=== PATIENT | female | born 1990 | race American Indian/Alaskan Native ===

== ENCOUNTER 2016-11-04 11:50 | Emergency (ER) | payer SELFPAY ==
[2016-11-04 12:06] VITALS: BP 149/98
[2016-11-04] MEDS ORDERED: DECADRON IM ONE (13:49)
--- NOTE | 2016-11-04 14:10 | Emergency Department Report ---
- General Chief Complaint: Upper Respiratory Infection Stated Complaint: RUNNING NOSE/FEVER/COUGHING UP COLD Time Seen by Provider: 11/04/16 13:33 Source: patient Mode of arrival: Ambulatory Limitations: No Limitations - History of Present Illness Initial Comments: Patient comes in the ER today with complaints of nasal congestion, nasal drainage, cough, sore throat for the past 5 days. Patient states that she's been taking [id number] medications without any relief. Patient states that she has been coughing up some greenish yellow phlegm. Patient denies any chest pain. - Related Data Previous Rx's Medication Instructions Recorded Last Taken Type Amoxicillin 1,000 mg PO BID #40 capsule 11/04/16 Unknown Rx predniSONE [Deltasone] 40 mg PO QDAY 5 Days 11/04/16 Unknown Rx Allergies Allergy/AdvReac Type Severity Reaction Status Date / Time cefaclor [From [facility]] Allergy Swelling Verified 11/04/16 12:00 ED Review of Systems ROS: Stated complaint: RUNNING NOSE/FEVER/COUGHING UP COLD Other details as noted in HPI Constitutional: denies: chills, fever Eyes: denies: eye pain, eye discharge, vision change ENT: throat pain, congestion. denies: ear pain, dental pain, epistaxis Respiratory: cough. denies: shortness of breath, wheezing Cardiovascular: denies: chest pain, palpitations Endocrine: no symptoms reported Gastrointestinal: denies: abdominal pain, nausea, diarrhea Genitourinary: denies: urgency, dysuria, discharge Musculoskeletal: denies: back pain, joint swelling, arthralgia Skin: denies: rash, lesions Neurological: denies: headache, weakness, paresthesias Psychiatric: denies: anxiety, depression Hematological/Lymphatic: denies: easy bleeding, easy bruising ED Past Medical Hx - Past Medical History Hx Hypertension: Yes Additional medical history: OBESITY - Surgical History Hx Cholecystectomy: Yes Additional Surgical History: LEFT ROTATOR CUFF REPAIR. X 3. TUBAL LIGATION. CERVICAL ABLATION - Social History Smoking Status: Never Smoker Substance Use Type: Alcohol - Medications Home Medications: Home Medications Medication Instructions Recorded Confirmed Last Taken Type Amoxicillin 1,000 mg PO BID #40 capsule 11/04/16 Unknown Rx predniSONE [Deltasone] 40 mg PO QDAY 5 Days 11/04/16 Unknown Rx ED Physical Exam - General Limitations: No Limitations General appearance: alert, in no apparent distress - Head Head exam: Present: atraumatic, normocephalic - Eye Eye exam: Present: normal appearance. Absent: conjunctival injection - ENT ENT exam: Present: mucous membranes moist, TM's normal bilaterally, normal external ear exam, other (bilateral nasal mucosa redness with turbinate swelling , left maxillary and frontal sinus tenderness to percussion. Posterior pharynx mildly erythematous with postnasal drainage noted.) - Neck Neck exam: Present: normal inspection - Respiratory Respiratory exam: Present: rhonchi. Absent: respiratory distress, wheezes, rales, decreased breath sounds - Cardiovascular Cardiovascular Exam: Present: regular rate, normal rhythm. Absent: systolic murmur, diastolic murmur, rubs, gallop - GI/Abdominal GI/Abdominal exam: Present: soft, normal bowel sounds. Absent: tenderness - Extremities Exam Extremities exam: Present: normal inspection - Back Exam Back exam: Present: normal inspection - Neurological Exam Neurological exam: Present: alert, oriented X3 - Psychiatric Psychiatric exam: Present: normal affect, normal mood - Skin Skin exam: Present: warm, dry, intact, normal color. Absent: rash ED Course Vital Signs 11/04/16 12:03 Temperature 98.8 F Pulse Rate 102 H Respiratory 18 Rate Blood Pressure 149/98 O2 Sat by Pulse 100 Oximetry ED Medical Decision Making - Medical Decision Making Patient is nontoxic and hemodynamically stable. Patient given Decadron 10 mg here in the ER for sinus congestion and symptomatic relief. I will prescribe patient antibiotics accordingly for upper respiratory infection. Patient is in agreement with treatment plan and patient is stable for discharge. Critical care attestation.: If time is entered above; I have spent that time in minutes in the direct care of this critically ill patient, excluding procedure time. ED Disposition Clinical Impression: Sinusitis, Bronchitis Disposition: - TO HOME OR SELFCARE Is pt being admited?: No Does the pt Need Aspirin: No Condition: Good Instructions: Acute Bronchitis (ED), Sinusitis (ED) Prescriptions: Amoxicillin 1,000 mg PO BID #40 capsule predniSONE [Deltasone] 40 mg PO QDAY 5 Days Referrals: PRIMARY CARE, [Primary Care Provider] - 3-5 Days Time of Disposition: 14:10
== END 2016-11-04 14:21 | disposition home or self-care (01) ==
LOC: ED 11:50
DX: J40 Bronchitis, not specified as acute or chronic (principal); J32.1 Chronic frontal sinusitis; J32.0 Chronic maxillary sinusitis; I10 Essential (primary) hypertension; Z90.49 Acquired absence of other specified parts of digestive tract; Z98.51 Tubal ligation status; Z88.8 Allergy status to other drugs, medicaments and biological substances
CPT/HCPCS: 96372; 99282; J1100

== ENCOUNTER 2017-01-15 08:45 | Emergency (ER) | payer MEDICAID ==
[2017-01-15 10:03] VITALS: BP 145/84
--- NOTE | 2017-01-15 19:10 | Emergency Department Report ---
Entered by BILL MAHER, acting as scribe for CHRIS GASTON NP. Minor Respiratory - HPI Chief Complaint: Allergic Reaction Stated Complaint: ITCHONG ALL OVER Time Seen by Provider: 01/15/17 10:17 Duration: 1 Day Severity: mild Minor Respiratory: Yes Rhinorrhea, Yes Able to Tolerate Fluids, Yes Cough, No Sore Throat, No Ear Pain, No Sick Contacts, No Hemoptysis, No Chest Pain, No Shortness of Breath, No Fever Other History: 26 y/o female with a PMHx of HTN and obesity presents to the ED c /o generalized itching that began yesterday at 16:00. Patient states she believes her itching is due to eating cantaloupe. Notes that this was her first time consuming cantaloupe and she reports she is having an allergic reaction. Associated symptoms includes cough and rhinorrhea, but she denies rash, SOB, throat closing sensation, nausea, vomiting, fever, chills, chest pain, and headache. Notes she has a scratchy sensation in back of throat at night. Allergic to cefaclor. ED Review of Systems ROS: Stated complaint: ITCHONG ALL OVER Other details as noted in HPI Comment: All other systems reviewed and negative Constitutional: denies: chills, fever Eyes: denies: eye pain, eye discharge, vision change ENT: other (rhinorrhea). denies: ear pain, throat pain, congestion Respiratory: cough. denies: orthopnea, shortness of breath, SOB with exertion, SOB at rest, stridor, wheezing Cardiovascular: denies: chest pain, palpitations Endocrine: no symptoms reported Gastrointestinal: denies: abdominal pain, nausea, vomiting, diarrhea Genitourinary: denies: urgency, dysuria, discharge Musculoskeletal: denies: back pain, joint swelling, arthralgia Skin: other (generalized itching). denies: rash, lesions Neurological: denies: headache, weakness, paresthesias Psychiatric: denies: anxiety, depression Hematological/Lymphatic: denies: easy bleeding, easy bruising ED Past Medical Hx - Past Medical History Previous Medical History?: Yes Hx Hypertension: Yes Additional medical history: OBESITY - Surgical History Past Surgical History?: Yes Hx Cholecystectomy: Yes Additional Surgical History: LEFT ROTATOR CUFF REPAIR. X 3. TUBAL LIGATION. CERVICAL ABLATION - Family History Family history: no significant - Social History Smoking Status: Never Smoker Substance Use Type: None - Medications Home Medications: Home Medications Medication Instructions Recorded Confirmed Last Taken Type Amoxicillin 1,000 mg PO BID #40 capsule 11/04/16 Unknown Rx predniSONE [Deltasone] 40 mg PO QDAY 5 Days 11/04/16 Unknown Rx Azithromycin [Zithromax Z-SOBEIDA] 250 mg PO DAILY #6 tablet 01/15/17 Unknown Rx Fluticasone [Flonase] 1 spray NS QDAY #1 bottle 01/15/17 Unknown Rx methylPREDNISolone [Medrol] 4 mg PO DAILY #1 tab.ds.pk 01/15/17 Unknown Rx Minor Respiratory Exam - Exam General: Vital signs noted. GENERAL: The patient is a well-developed, well-nourished, in no apparent distress. Patient is alert and oriented x3. HEENT: Yes Pharyngeal Erythema, Yes Moist Mucous Membranes (post nasal drainage present), Yes Rhinorrhea, Yes Frontal Tenderness (bilaterally), Yes Maxillary Tenderness (bilaterally), No Pharyngeal Exudates, No Conjuctival Injection Ear: Neither TM Bulge, Neither TM Erythema, Neither EAC Pain, Neither EAC Discharge Neck: Yes Supple (FROM), No Adenopathy Lungs: Yes Good Air Exchange, Yes Ronchi (present to bilateral bronchioles), No Wheezes, No Stridor, No Cough, No Labored Respirations, No Retractions, No Use of Accessory Muscles, No Other Abnormal Lung Sounds Heart: Yes Regular (Regular rate and rhythm. S1-S2), No Murmur Abdomen: Yes Normal Bowel Sounds (Soft, nondistended in all quadrants), No Tenderness, No Peritoneal Signs Skin: No Rash, No Edema Neurologic: Alert and oriented, no deficits. Musculoskeletal: Unremarkable. ED Course Vital Signs 01/15/17 09:56 Temperature 98.9 F Pulse Rate 88 Respiratory 18 Rate Blood Pressure 145/84 O2 Sat by Pulse 100 Oximetry Critical care attestation.: If time is entered above; I have spent that time in minutes in the direct care of this critically ill patient, excluding procedure time. ED Disposition Clinical Impression: Upper respiratory infection, Bronchitis, Urticaria Disposition: DC-01 TO HOME OR SELFCARE Is pt being admited?: No Does the pt Need Aspirin: No Condition: Stable Instructions: Chronic Bronchitis (ED) Additional Instructions: REST FLUIDS MEDS ORDERED TODAY Referrals: PRIMARY CARE, [Primary Care Provider] - 3-5 Days DMITRY DOVE MD [Staff Physician] - 3-5 Days Time of Disposition: 11:25 This documentation as recorded by the GUNNAR agustin JASMINE,accurately reflects the service I personally performed and the decisions made by me,CHRIS CHRISTIANSON NP.
== END 2017-01-15 11:35 | disposition home or self-care (01) ==
LOC: ED 08:45
DX: J06.9 Acute upper respiratory infection, unspecified (principal); J40 Bronchitis, not specified as acute or chronic; L50.9 Urticaria, unspecified; I10 Essential (primary) hypertension; E66.9 Obesity, unspecified
CPT/HCPCS: 99282

== ENCOUNTER 2017-01-30 21:09 | Emergency (ER) | payer MEDICAID ==
[2017-01-30 22:29] LABS: Basophils % (Auto) 0.5 % (0.0-1.8); Eosinophils % (Auto) 0.1 % (0.0-4.3); Hemoglobin 12.2 gm/dl (10.1-14.3); Mean Corpuscular HGB Conc 33 % (30-34); Mean Corpuscular Hemoglobin 28 pg (28-32); Mean Corpuscular Volume 85 fl (79-97); Platelet Count 201 K/mm3 (140-440); Red Blood Count 4.34 M/mm3 (3.65-5.03); Red Cell Distribution Width 15.1 % (13.2-15.2); White Blood Count 9.7 K/mm3 (4.5-11.0)
[2017-01-30 22:33] LABS: Anion Gap 16 mmol/L; BUN/Creatinine Ratio 14.44; Blood Urea Nitrogen 13 mg/dL (7-17); Calcium 8.3 mg/dL (8.4-10.2); Carbon Dioxide 24 mmol/L (22-30); Chloride 106.8 mmol/L (98-107); Glucose 95 mg/dL (65-100); Potassium 4.4 mmol/L (3.6-5.0); Sodium 142 mmol/L (137-145)
[2017-01-30 22:38] LABS: Bilirubin,Urine NEG (Negative); Blood,Urine NEG (Negative); Ketones,Urine NEG (Negative); Leukocyte Esterase,Urine NEG (Negative); Mucus,Urine FEW /HPF; Nitrite,Urine NEG (Negative); Protein,Urine <15 mg/dL mg/dL (Negative); RBC,Urine < 1.0 /HPF (0.0-6.0); Urobilinogen,Urine < 2.0 mg/dL (<2.0)
[2017-01-31 01:36] VITALS: BP 144/95
--- NOTE | 2017-01-31 09:07 | XRay Report ---
Chest 2 views: History: Cough. Findings: Normal cardiomediastinal silhouette. Trachea is midline. No consolidation, pneumothorax or pleural effusion. Impression: No acute cardiopulmonary findings.
== END 2017-01-31 03:43 | disposition left against medical advice (07) ==
LOC: ED 21:09
DX: N89.8 Other specified noninflammatory disorders of vagina (principal); R05 Cough; Z53.21 Procedure and treatment not carried out due to patient leaving prior to being seen by health care provider
CPT/HCPCS: 36415; 71020; 80048; 81001; 84703; 85025

== ENCOUNTER 2017-06-18 08:07 | Outpatient (CLI) | payer MEDICAID ==
--- NOTE | 2017-06-18 08:36 | XRay Report ---
XRAY BILATERAL KNEE THREE VIEWS EACH: 06/18/17 08:07:00 CLINICAL: Bilateral knee pain. FINDINGS: Right: Mild osteopenia. Narrowing of the medial joint space with small osteophytes. Slight widening of the lateral joint space with small osteophytes. Normal patellofemoral joint. No joint effusion. No fracture or dislocation. Normal soft tissues. Left: Moderate osteopenia. Mild narrowing of the medial and lateral joint spaces no osteophytes. Normal patellofemoral joint. No joint effusion. No fracture or dislocation. Normal soft tissues. IMPRESSION: Mild osteoarthritis of the right knee with involvement of both medial and lateral joint spaces. Minimal osteoarthritis of the left knee. Osteopenia.
== END 2017-06-18 08:08 | disposition home or self-care (01) ==
LOC: SPVIMAG 08:07
PROVIDERS: ATTEND Orthopaedic Surgery Sports Medicine
DX: M17.0 Bilateral primary osteoarthritis of knee (principal); M85.861 Other specified disorders of bone density and structure, right lower leg; M85.862 Other specified disorders of bone density and structure, left lower leg